=== PATIENT | male | born 1970 | race Caucasian/White ===

== ENCOUNTER 2022-08-01 23:46 | Emergency (ER) | payer SELFPAY ==
[2022-08-01 23:52] VITALS: BP 165/92; PULSE 76; RESP 20; TEMP 36.7; O2SAT 98
[2022-08-02] MEDS: SULFAMETHOXAZOLE/TRIMETHOPRIM 800/160 MG DS TABLET 1 TAB PO (00:47)
--- NOTE | 2022-08-02 02:39 | ED.SKABFB ---
HPI - Skin/Abscess/Foreign Bdy General Chief complaint: Skin/Abscess/Foreign Body Stated complaint: rash on face x1 year Time Seen by Provider: 08/02/22 00:36 History of Present Illness HPI narrative: Patient states that he has had skin infections on his face on and off for the past year, they seem to only have started once he started shaving. No fevers or chills. He has 1 on his left upper neck/lower jaw that he popped and is draining Related Data Allergies Allergy/AdvReac Type Severity Reaction Status Date / Time No Known Allergies Allergy Verified 08/01/22 23:58 Review of Systems Review of Systems: No fevers or chills, no nausea vomiting, does have a painful skin rash PMFSH Past Medical History Medical History (Updated 08/02/22 @ 02:40 by Tish Miramontes MD) Abscess Exam Narrative: EXAMINATION OF ORGAN SYSTEMS/BODY AREAS: Constitutional: Vital signs per nursing GENERAL:[No acute distress, non-toxic appearing.] HEAD: Normal with no signs of head trauma. EYES: EOMI, conjunctiva normal ENT: Minimally tender, indurated area left lower jaw/upper neck without fluctuance LUNGS: Nonlabored breathing. HEART: [Regular rate and rhythm] EXT: Normal range of motion SKIN: Area of induration as described above NEURO: [Alert and oriented x 3. No gross focal sensory or strength deficits.] PSYCH: Normal affect Course Vital Signs Vital signs: Vital Signs Temperature 98.1 F 08/01/22 23:52 Pulse Rate 76 08/01/22 23:52 Respiratory Rate 20 08/01/22 23:52 Blood Pressure 165/92 H 08/01/22 23:52 Pulse Oximetry 98 08/01/22 23:52 Oxygen Delivery Room Air 08/01/22 23:52 Temperature 98.1 F 08/01/22 23:52 Pulse Rate 76 08/01/22 23:52 Respiratory Rate 20 08/01/22 23:52 Blood Pressure 165/92 H 08/01/22 23:52 Pulse Oximetry 98 08/01/22 23:52 Oxygen Delivery Room Air 08/01/22 23:52 MDM - Skin/Abscess/Foreign Bdy MDM Narrative Medical decision making narrative: MEDICAL DECISION MAKING AND COURSE IN THE ED WITH INTERPRETATION/REVIEW OF DIAGNOSTIC STUDIES: Electronic medical record was reviewed. Patient presented to the ED with complaint of painful skin rash. Vitals [were within acceptable limits]. Physical exam revealed area of tenderness and induration consistent with abscess, without fluctuance that may benefit from drainage. [Patient was given Bactrim here and a course to continue at home.] The patient is discharged home in stable condition. I have asked the patient to return to the emergency department for worsening pain, worsening and increasing size of skin infection, fevers/chills. The patient is instructed to follow up with [PCP] in [2] days. Is advised to stop shaving. Patient verbalized understanding. Discharge Plan Discharge Clinical Impression: Abscess of skin or subcutaneous tissue, Folliculitis Patient Disposition: Home, Self-Care Condition: Stable Instructions: Antibiotic Form, Folliculitis (ED), Abscess (ED) Additional Instructions: Please follow up with the doctor until this is resolved; stop shaving. Come back if your symptoms worsen. Prescriptions: New sulfamethoxazole-trimethoprim [Bactrim DS] 800-160 mg tablet 1 tablet PO Q12H Qty: 14 0RF Follow-up/Referrals: Stan Valencia MD [Primary Care Provider] - Pedro Mcnulty MD [Physician] - 2 Days
== END 2022-08-02 00:49 | disposition home or self-care (01) ==
PROVIDERS: Emergency Provider Emergency Medicine; PCP Orthopaedic Surgery
DX: L02.01 Cutaneous abscess of face (principal); L73.9 Follicular disorder, unspecified
CPT/HCPCS: 99283; A9270